=== PATIENT | female | born 1985 | race Caucasian/White ===

== ENCOUNTER 2016-11-24 20:08 | Emergency (ER) | payer MEDICAID ==
[~2016-11-24] VITALS: Ht 152.4 cm; Wt 82.0 kg
[~2016-11-24 20:08] MED LIST: OMEG500C3 PO; OMEP20CA9 PO; OMEP40CA6 PO; ONDA4TAB35 PO; PHEN-547 PO; PREN1TAB17 PO
[2016-11-24 20:42] VITALS: Ht 152.4 cm; Wt 82.0 kg
[2016-11-24 22:04] LABS: URINE BLOOD (Dip) POC 2+ (NEGATIVE)
--- NOTE | 2016-11-24 23:26 | ERD ---
ER Documentation Chief Complaint Date/Time DATE: 11/24/16 TIME: 23:21 Chief Complaint lower abd pain x 2 weeks HPI Patient is a 31-year-old female who presents to the ED with pelvic pain x 2 weeks. She states that she was sent here from her PCP provider for ultrasound. She denies urinary symptoms. She denies abnormal vaginal bleeding. She states that her last period was on 11/20/16. She is currently sexually active with 1 person. She denies abnormal vaginal discharge. She denies fever or chills. She denies chest pain, cough, shortness of breath or difficulty breathing. She denies abdominal pain. She denies constipation, diarrhea, nausea, vomiting. No other symptoms. ROS All systems reviewed and are negative except as per history of present illness. Medications Home Meds Active Scripts Ibuprofen* (Motrin*) 600 Mg Tab, 600 MG PO Q6, #30 TAB Prov:LEELEE BAI PA-C 11/24/16 Ondansetron Hcl* (Zofran* ODT) 4 mg -ODT Tab.disper, 4 MG PO Q6 Y for NAUSEA AND /OR VOMITING, #30 TAB Prov:AMANDA GARCIA MD 06/06/16 Omeprazole* (Prilosec*) 20 Mg Capsule., 20 MG PO DAILY, #30 CAP Prov:AMANDA GARCIA MD 06/06/16 Omeprazole* (Omeprazole*) 40 Mg Capsule., 40 MG PO DAILY, #30 CAP 1 Refill Prov:SWEETIE BLACKMON 04/04/15 Ondansetron Hcl* (Zofran* ODT) 4 mg -ODT Tab.disper, 4 MG PO Q6 Y for NAUSEA AND /OR VOMITING, #10 TAB Prov:SWEETIE BLACKMON 04/04/15 Belladonna Alkaloids-Phenobarb* (*) 16.2 Mg/5 Ml Elixir, 5 ML PO Q6H Y for PAIN, #120 BOTTLE 0 Refills Prov:SWEETIE BLACKMON 04/04/15 Reported Medications [place]-3 Fatty Acids (Fish Oil) 500 Mg Capsule, 500 MG PO DAILY 03/16/14 Vit-Iron Fumarate-FA ( Tablet) 1 Each Tablet, 1 EACH PO DAILY 02/27/14 Allergies Allergies: Coded Allergies: No Known Drug Allergy (Verified Allergy, Unknown, 11/27/11) PMhx/Soc Medical and Surgical Hx: pt denies Medical Hx, pt denies Surgical Hx History of Surgery: Yes ( cholecystectomy) Anesthesia Reaction: No Hx Neurological Disorder: No Hx Respiratory Disorders: No Hx Cardiac Disorders: No Hx Psychiatric Problems: No Hx Miscellaneous Medical Probl: Yes (ELEVATED LFTS, "BILIARY DUCT PROBLEM") Hx Alcohol Use: No Hx Substance Use: No Hx Tobacco Use: No Smoking Status: Never smoker Physical Exam Vitals Vital Signs Date Time Temp Pulse Resp B/P Pulse Ox O2 Delivery O2 Flow Rate FiO2 11/24/16 20:42 98.3 85 20 137/63 100 Physical Exam GENERAL: Well-developed, well-nourished female. Appears in no acute distress. HEAD: Normocephalic, atraumatic. EYES: Pupils are equally reactive bilaterally. EOMs grossly intact. No conjunctival erythema. ENT: Moist mucous membranes. No uvula deviation. No kissing tonsils. No exudates. NECK: Supple. No lymphadenopathy or thyromegaly. No meningismus. negative kernig. negative brudinski. LUNG: Clear to auscultation bilaterally. No rhonchi, wheezing, rales or coarse breath sounds. HEART: Regular rate and rhythm. No murmurs, rubs or gallops. ABDOMEN: No scars, ecchymosis or rashes noted. Soft, nontender, and nondistended. Positive bowel sounds in all four quadrants. No rebound tenderness , no guarding. (-) McBurneys point tenderness. No CVA tenderness. Mild pelvic pain BACK: No midline tenderness. Extremities: Equal pulses bilaterally. No peripheral clubbing, cyanosis or edema. No unilateral leg swelling. NEUROLOGIC: Alert and oriented. Moving all four extremities. 5/5 strength in all extremities. Normal speech. Steady gait. SKIN: Normal color. Warm and dry. No rashes or lesions. Capillary refill < 2 seconds Results 24 hrs Laboratory Tests Test 11/24/16 22:05 Bedside Urine Blood 2+ Bedside Urine Glucose (UA) Negative Bedside Urine Ketones (LAB) Negative Bedside Urine Leukocyte Esterase (L Negative Bedside Urine Nitrite (LAB) Negative Bedside Urine Protein (LAB) Negative Bedside Urine pH (LAB) 6.0 Procedures/MDM ER COURSE: I kept the patient and/or family informed of laboratory and diagnostic imaging results throughout the emergency room course. EKG, MONITORS, & DIAGNOSTIC IMAGING: [place] [id number] Radiology Main Line: [phone] DIAGNOSTIC IMAGING REPORT Patient: LEONARDO KULKARNI : 1985 Age: 31 Sex: F MR #: [id number] DOS: 11/24/162 Ordering MD: LEELEE BAI PA-C Location: [facility] Room/Bed: PROCEDURE: Ultrasound of the pelvis. CLINICAL INDICATION: Pelvic pain TECHNIQUE: Transabdominal and transvaginal ultrasound of the pelvis was performed to better evaluate the pelvic viscera. COMPARISON: No pertinent prior examinations were submitted for comparison. FINDINGS: LAST MENSTRUAL PERIOD: Unavailable UTERUS: Size: 9.2 x 4.4 x 4.5 cm. The uterine texture is homogeneous. The endometrium measures 5.8 mm which is within normal limits. RIGHT OVARY: Size: 3.7 x 2.3 x 2.4 cm. No ovarian lesion or cyst is identified.Normal Doppler flow is noted to the right ovary. LEFT OVARY: Size: 3.4 x 2.1 x 2.5 cm. No ovarian lesion or cyst is identified.Normal Doppler flow is noted to the left ovary. CUL-DE-SAC: There is no abnormal free fluid. IMPRESSION: Normal endometrium. No evidence of ovarian torsion. RPTAT: HIKT .Dev Santos MD, MD Date Time Electronically viewed and signed by .Dev Santos MD, on 11/24/2016 23:25 .T/ CC: LEELEE BAI PA-C UA showed no evidence of leukocytes, nitrites or hematuria. Urine test was negative. MEDICAL DECISION MAKING: This is a 31-year-old female who presents with bilateral pelvic pain. Vital signs were reviewed. Patient is afebrile. Patient is not hypoxic. Patient is not toxic or ill-appearing. Patient was sent here from her primary care for a pelvic ultrasound. Patient has pelvic pain of uncertain etiology. Low suspicion for ovarian torsion, PID, tuboovarian abscess, ectopic , bowel obstruction, pyelonephritis, UTI, appendicitis, cervicitis, septic , molar , HELLP syndrome, preeclampsia, eclampsia, placenta previa, placenta abruptia. Low suspicion for ACS, AAA, perforated ulcer, bowel obstruction, cholecystitis, choledocholithiasis, cholangitis, pancreatitis, hepatic abscess, appendicitis, diverticulitis, gastroenteritis, hepatitis, peptic ulcer disease, HELLP syndrome. DISCHARGE: At this time, patient is stable for discharge and outpatient management with no new complaints during the ER course. Patient was sent home with ibuprofen. Patient will be discharged home with instructions to recheck for new or worsening symptoms such as fever, nausea, weakness, LOC and to follow up with primary care in the next 1-2 days. Patient was advised to return to the ER for any new or worsening symptoms. Plan was discussed and patient and/or family understands and agrees. Home instructions were given. Departure Diagnosis: Primary Impression: Pelvic pain Condition: Stable LEELEE BAI PA-C Nov 24, 2016 23:26
[2016-11-24] MEDS ORDERED: IBUP-1542 PO (23:29)
[2016-11-25 00:04] VITALS: BP 123/80; PULSE 84; RESP 20; TEMP 99.3
== END 2016-11-25 00:07 | disposition home or self-care (01) ==
LOC: FTE 20:08
DX: R10.2 Pelvic and perineal pain (principal)
CPT/HCPCS: 76830; 76856; 81003

== ENCOUNTER 2018-01-02 19:01 | Emergency (ER) | END 2018-01-02 23:22 | disposition left against medical advice (07) ==

== ENCOUNTER 2018-01-03 15:23 | Emergency (ER) | END 2018-01-03 22:04 | disposition home or self-care (01) ==